=== PATIENT | female | born 2005 | race Caucasian/White ===

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

== ENCOUNTER → 2025-04-25 | Outpatient (CLI) | payer OTHER, SELFPAY ==
[2025-04-25 13:02] LABS: AST(SGOT) 22 U/L (<=31); Alanine Aminotransfer ALT/SGPT 16 U/L (<=34); Albumin, Serum 4.7 g/dL (3.5-5.0); Alkaline Phosphatase 67 U/L (35-104); Bilirubin, Direct 0.43 mg/dL (0.00-0.30); Cholesterol 137 mg/dL (<=190); Globulin 2.7 g/dL (2.2-4.2); High Density Lipoprotein 51 mg/dL; Low Density Lipoprotein Calc. 79 mg/dL; Protein, Total 7.5 g/dL (5.9-8.4); Total Bilirubin 1.07 mg/dL (0.00-1.30); Triglycerides 36 mg/dL; Very Low Density Lipoprotein 7 mg/dL (5-40); cholesterol:hdl ratio screen 2.67
== END | disposition home or self-care (01) ==
LOC: MTLAB 08:14
PROVIDERS: PCP Pediatrics
DX: L70.0 Acne vulgaris (principal)
CPT/HCPCS: 36415; 80061; 80076

== ENCOUNTER → 2025-05-10 | Outpatient (CLI) | payer OTHER, SELFPAY ==
[2025-05-10 12:19] LABS: Internal QC Validated? YES +Cl - CLEAR BKGD; Pregnancy, Urine Negative Negative
== END | disposition home or self-care (01) ==
PROVIDERS: PCP Pediatrics
DX: L70.0 Acne vulgaris (principal); Z79.899 Other long term (current) drug therapy
CPT/HCPCS: 81025

== ENCOUNTER → 2025-07-10 | Outpatient (CLI) | payer OTHER, SELFPAY ==
[2025-07-10 12:36] LABS: AST(SGOT) 27 U/L (<=31); Alanine Aminotransfer ALT/SGPT 17 U/L (<=34); Cholesterol 165 mg/dL (<=190); Low Density Lipoprotein Calc. 107 mg/dL; Triglycerides 39 mg/dL; Very Low Density Lipoprotein 8 mg/dL (5-40); cholesterol:hdl ratio screen 3.29
[2025-07-10 13:17] LABS: hCG Titer Quant., Serum < 1 mIU/mL (<9 non-preg)
== END | disposition home or self-care (01) ==
LOC: MTLAB 09:24
PROVIDERS: PCP Pediatrics
DX: Z79.899 Other long term (current) drug therapy (principal)
CPT/HCPCS: 36415; 80061; 84450; 84460; 84702